=== PATIENT | female | born 1965 | race Caucasian/White ===

== ENCOUNTER 2024-02-20 19:52 | Emergency (ER) | payer OTHER ==
[~2024-02-20] VITALS: Ht 165.1 cm; Wt 83.9 kg
[~2024-02-20 19:52] MED LIST: ACET-2079 PO; AEC81 PO; CLOP-31 PO; EMPA25TA PO; EZET10TA48 PO; FENO145T26 PO; ISOS20TA85 PO; LOSA100T59 PO; MELA1TAB28 PO; METO-391 PO; MIRT-73 PO; RANO500T2 PO; ROSU40TA88 PO; SERT200C PO; SPIR25TA6 PO
[2024-02-20] MEDS: 0.9%NACL 1000ML 1,000 ML IV ONE (20:16)
[2024-02-20] MEDS: ondanSETRON 4MG INJ IVP ONE (20:19)
[2024-02-20 20:35] LABS: BASOPHILS # (AUTO) 0.04 K/uL (0.00-0.20); BASOPHILS % (AUTO) 0.4 % (0.0-5.0); EOSINOPHILS # (AUTO) 0.05 K/uL (0.00-0.70); EOSINOPHILS % (AUTO) 0.6 % (0.0-8.0); HEMATOCRIT 37.5 % (36-48); IMMATURE GRANULOCYTE ABSOLUTE 0.07 K/uL (0-1); LYMPHOCYTES # (AUTO) 1.5 K/uL (1.0-4.8); LYMPHOCYTES % (AUTO) 16.3 % (21.0-51.0); MEAN CORPUSCULAR HEMOGLOBIN 28.6 pg (27.0-33.0); MEAN CORPUSCULAR HGB CONC 33.1 g/dL (32.0-36.0); MEAN CORPUSCULAR VOLUME 86.4 fL (79-99); MONOCYTES # (AUTO) 0.8 K/uL (0.1-1.0); MONOCYTES % (AUTO) 9.3 % (3.0-13.0); NEUTROPHILS # (AUTO) 6.5 K/uL (1.8-7.7); NEUTROPHILS % (AUTO) 72.6 % (40.0-77.0); PLATELET COUNT (AUTO) 319 K/uL (130-400); RED BLOOD CELL COUNT(AUTO) 4.34 MIL/uL (4.00-5.50); WHITE BLOOD COUNT (AUTO) 8.9 K/uL (4.8-10.8)
[2024-02-20 20:44] LABS: COVID19 (SARS ANTIGEN RAPID) PRESUMPTIVE NEGATIVE (NEGATIVE)
[2024-02-20 20:45] LABS: INFLUENZA TYPE A Negative For Type A (NEGATIVE); INFLUENZA TYPE B Negative For Type B (NEGATIVE)
[2024-02-20 20:52] LABS: CARBON DIOXIDE 26 mmol/L (21-32); CHLORIDE 106 mmol/L (101-111); CREATININE 0.8 mg/dL (0.5-1.0); GLOMERULAR FILTR. RATE CALC 84 mL/min (>90); GLUCOSE,RANDOM 181 mg/dL (70-105); POTASSIUM 3.7 mmol/L (3.5-5.1); SODIUM SERUM 141 mmol/L (136-145); UREA NITROGEN, BLOOD 11 mg/dL (7-18)
[2024-02-20 21:02] LABS: ALANINE AMINOTRANSFERASE 24 U/L (12-78); ALBUMIN 3.5 g/dL (3.5-5.0); ASPARTATE AMINOTRANSFERASE 14 U/L (10-37); BILIRUBIN,DIRECT < 0.1 mg/dL (0.0-0.3); BILIRUBIN,TOTAL 0.3 mg/dL (0.2-1.0); CREATINE KINASE, TOTAL 122 U/L (21-232); TOTAL PROTEIN, SERUM 7.9 g/dL (6.0-8.3)
[2024-02-20] MEDS: hydrALAZine 20MG/ML VIAL IV ONE (21:09)
[2024-02-20] MEDS: morPHINE 4 MG SYG IVP ONE (22:05)
[2024-02-20 22:25] LABS: APPEARANCE,URINE CLEAR (CLEAR); BILIRUBIN,URINE NEGATIVE (NEGATIVE); COLOR,URINE YELLOW (YELLOW); GLUCOSE, URINE (UA) >=1000 mg/dL (NEGATIVE); KETONES,URINE NEGATIVE (NEGATIVE); LEUKOCYTE ESTERASE ,URINE NEGATIVE Leu/uL (NEGATIVE); NITRATE,URINE NEGATIVE (NEGATIVE); OCCULT BLOOD,URINE NEGATIVE (NEGATIVE); PROTEIN,URINE 20 mg/dL (NEGATIVE); UROBILINOGEN,URINE 0.2 mg/dL (0.2-1.0)
[2024-02-20 22:28] LABS: ADD UA MICROSCOPIC YES
[2024-02-20 22:29] LABS: BACTERIA,URINE FEW /HPF (None Seen); MUCUS,URINE FEW LPF (None Seen); SQUAMOUS EPITHELIAL CELL,UR FEW /HPF (0-2)
[2024-02-20] MEDS ORDERED: ONDA-243 PO (22:37)
[2024-02-20 22:45] VITALS: BP 164/80; PULSE 86; RESP 20; TEMP 97.4; O2SAT 99
== END 2024-02-20 22:55 | disposition home or self-care (01) ==
LOC: EDH 19:52
DX: K52.9 Noninfective gastroenteritis and colitis, unspecified (principal); E86.0 Dehydration; G89.18 Other acute postprocedural pain; I10 Essential (primary) hypertension; E11.9 Type 2 diabetes mellitus without complications; E78.00 Pure hypercholesterolemia, unspecified; I25.10 Atherosclerotic heart disease of native coronary artery without angina pectoris; Z20.822 Contact with and (suspected) exposure to COVID-19; Z79.02 Long term (current) use of antithrombotics/antiplatelets; Z79.82 Long term (current) use of aspirin; Z79.84 Long term (current) use of oral hypoglycemic drugs; Z79.899 Other long term (current) drug therapy; Z86.73 Personal history of transient ischemic attack (TIA), and cerebral infarction without residual deficits; Z88.0 Allergy status to penicillin; Z88.1 Allergy status to other antibiotic agents; Z88.6 Allergy status to analgesic agent; Z90.710 Acquired absence of both cervix and uterus; Z95.1 Presence of aortocoronary bypass graft; Z96.649 Presence of unspecified artificial hip joint
CPT/HCPCS: 99284; 96374; 96375; 71045; 96361; 87426; 82550; 80076; 84484; 80048; 85025; 87040; 87086; 87804 ×2; 83605; 81001; 36415; 73502; 84145; J7030; J0360; J2405; J2270

== ENCOUNTER 2024-03-29 10:50 | Emergency (ER) | payer OTHER ==
[~2024-03-29] VITALS: Ht 165.1 cm; Wt 78.9 kg
[~2024-03-29 10:50] MED LIST changes: +ONDA-243 PO
[2024-03-29] MEDS: PANTOPrazole 40 MG/VIAL IVP ONE (11:10)
--- NOTE | 2024-03-29 11:12 | ERN ---
ED Note History of Present Illness Stated Complaint: CP Chief Complaint: Chest Pain Time Seen by MD: 10:45 Dictation: Patient is a 59-year-old female with a past medical history of hypercholesterolemia, hypertension, DM II, and coronary artery disease who presents to the ED due to chest pain. Patient states the chest pain lasted about one minute and she describes it as substernal and squeezing in nature. Patient has a history of five-vessel bypass surgery and states her last catheterization was this summer demonstrating occlusion of greater than 75% in three vessels. On arrival patient states the chest pain has resolved and denies any shortness of breath, weakness, numbness or tingling. Allergies: Coded Allergies: Penicillins (Unverified Allergy, Intermediate, hives, 01/13/14) Tetracyclines (Unverified Allergy, Intermediate, hives, 01/13/14) cephalexin (Unverified Allergy, Intermediate, hives, 01/13/14) naproxen (Unverified Allergy, Intermediate, hives, 01/13/14) Uncoded Allergies: alleve (Allergy, Intermediate, hives, 01/13/14) loratab (Allergy, Intermediate, hives, 01/13/14) Home Meds Active Scripts Ondansetron (Ondansetron Odt) 4 Mg Tab.rapdis, 1 TAB PO Q6HPRN PRN for nausea/v omiting for 3 Days, #10 TAB 0 Refills Prov:ALEXANDER LIGHT DO 02/20/24 Acetaminophen with Codeine (Acetaminophen-Cod #3 Tablet) 300 Mg-30 Mg Tablet, 1 EACH PO Q6HPRN PRN for PAIN LEVEL 6 TO 10 for 7 Days, #20 TAB Prov:JENNIFER SHANNON 08/09/23 Reported Medications Sertraline HCl (Sertraline HCl) 200 Mg Capsule, 200 MG PO DAILY, CAP 08/07/23 Mirtazapine (Mirtazapine) 30 Mg Tab.rapdis, 45 MG PO HS, TAB 08/07/23 Melatonin/Pyridoxine HCl (B6) (Melatonin 3 mg Tablet) 3 Mg-10 Mg Tablet, 1 EACH PO HS, TAB 08/07/23 Isosorbide Mononitrate (Isosorbide Mononitrate) 20 Mg Tablet, 30 MG PO DAILY, TAB 08/07/23 Aspirin (ASPIRIN 81 MG ECTAB) 81 Mg Ectab, 81 MG PO DAILY, TAB.EC 08/07/23 Spironolactone (Spironolactone) 25 Mg Tablet, 25 MG PO DAILY, TAB 08/07/23 Metoprolol Succinate (Metoprolol Succinate) 50 Mg Tab.er.24h, 50 MG PO DAILY, TAB 08/07/23 Empagliflozin (Jardiance) 25 Mg Tablet, 12.5 MG PO DAILY, TAB 08/07/23 Rosuvastatin Calcium (Rosuvastatin Calcium) 40 Mg Tablet, 40 MG PO HS, TAB 08/07/23 Ezetimibe (Ezetimibe) 10 Mg Tablet, 10 MG PO DAILY, TAB 04/30/23 Fenofibrate Nanocrystallized (Fenofibrate) 145 Mg Tablet, 145 MG PO DAILY, TAB 04/29/23 Ranolazine (RANEXA) 500 Mg Tab.er.12h, 1000 MG PO BID, TAB 04/28/23 Losartan Potassium (Losartan Potassium) 100 Mg Tablet, 100 MG PO DAILY, TAB 04/28/23 Clopidogrel Bisulfate (Plavix) 75 Mg Tablet, 75 MG PO DAILY, TAB 04/28/23 Past Medical History Past Medical History: CAD, Diabetes-Type II, High Cholesterol, Heart Disease, Hypertension Surgical History: CABG, Other Surgical History Other: L HIP, L SHOULDER Family History: DM, HTN Social History: Negative, Lives with family Review of System Dictation Constitutional-no chills, weight loss/gain, fever Eyes-no injury, pain, redness and discharge ENT-no injury, pain, swelling Cardiovascular: palpitations, edema, Positive for chest pain, resolved. Respiratory no shortness of breath, cough, wheezing Abdomen/GI-no abdominal pain, diarrhea, constipation, vomiting, nausea Back no injury and pain Genitourinary no injury, bleeding and discharge Musculoskeletal/extremities no injury, deformity Skin no rash, discoloration Neuro-no headache, weakness, numbness, tingling, seizures, tremors Psych-no suicidal ideation, homicidal ideation, hallucinations, depression, anxiety, memory loss Initial Vital Sign VS Vital Signs Date Time Temp Pulse Resp B/P (MAP) Pulse Ox O2 Delivery O2 Flow Rate FiO2 03/29/24 10:52 98.1 72 18 157/72 97 Room Air 0 03/29/24 10:59 21 Physical Exam Dictation General-patient is awake alert and oriented Head/neck-normocephalic, atraumatic Eyes-PERRL, EOMI, vision at baseline Neck-trachea midline, supple, no nuchal rigidity Cardiovascular-RRR, normal S1/S2, no MRG is, no JVD Respiratory-no distress, wheezing, rales, rhonchi Abdomen-no tenderness, guarding, soft, nondistended Skin warm, dry, normal turgor, no rash Musculoskeletal/extremities pulses equal, no cyanosis Neuro-COA X 4, GCS 15, strength 5/5, CN 2-12 intact Psych-normal behavior, mood and affect normal Results (Laboratory/Radiology) Laboratory/Radiology Laboratory Tests Test 03/29/24 10:59 03/29/24 11:23 03/29/24 12:19 White Blood Count 6.7 K/uL (4.8-10.8) Red Blood Count 5.22 MIL/uL (4.00-5.50) Hemoglobin 14.3 g/dL (12.0-16.0) Hematocrit 44.4 % (36-48) Mean Corpuscular Volume 85.1 fL (79-99) Mean Corpuscular Hemoglobin 27.4 pg (27.0-33.0) Mean Corpuscular Hemoglobin Concent 32.2 g/dL (32.0-36.0) Red Cell Distribution Width 12.6 % (11.0-15.5) Platelet Count 214 K/uL (130-400) Mean Platelet Volume 9.2 fL (7.5-10.5) Immature Granulocyte % (Auto) 0.4 % (0-1) Neutrophils (%) (Auto) 71.6 % (40.0-77.0) Lymphocytes (%) (Auto) 18.3 % (21.0-51.0) L Monocytes (%) (Auto) 8.4 % (3.0-13.0) Eosinophils (%) (Auto) 1.0 % (0.0-8.0) Basophils (%) (Auto) 0.3 % (0.0-5.0) Neutrophils # (Auto) 4.8 K/uL (1.8-7.7) Lymphocytes # (Auto) 1.2 K/uL (1.0-4.8) Monocytes # (Auto) 0.6 K/uL (0.1-1.0) Eosinophils # (Auto) 0.07 K/uL (0.00-0.70) Basophils # (Auto) 0.02 K/uL (0.00-0.20) Absolute Immature Granulocyte (auto 0.03 K/uL (0-1) Nucleated Red Blood Cells 0.0 % (0.0-0.19) Prothrombin Time 10.7 SEC (9.6-11.6) Prothromb Time International Ratio 0.99 (0.85-1.15) Activated Partial Thromboplast Time 27.1 SEC (26.3-35.5) Sodium Level 142 mmol/L (136-145) Potassium Level 3.9 mmol/L (3.5-5.1) Chloride Level 107 mmol/L (101-111) Carbon Dioxide Level 28 mmol/L (21-32) Blood Urea Nitrogen 11 mg/dL (7-18) Creatinine 0.9 mg/dL (0.5-1.0) Glomerular Filtration Rate Calc 73 mL/min (>90) Random Glucose 113 mg/dL (70-105) H Total Calcium 8.8 mg/dL (8.5-10.1) Magnesium Level 1.70 mg/dL (1.80-2.40) L Total Creatine Kinase 69 U/L (21-232) # Troponin I High Sensitivity 11 ng/L (4-50) 10 ng/L (4-50) B-Type Natriuretic Peptide 37 pg/mL (0-100) Troponin I < 0.05 ng/mL (0.00-0.05) EKG Comment: Obtained 03/29/24 at 10:47:43 Sinus rhythm HR: 72 [place]: [address] elevations/depressions X-RAY Comment: CXR: FINDINGS: Lungs are clear. Heart size is normal. There is no vascular congestion. There is been previous median sternotomy. Mediastinum and bony thorax appear otherwise unremarkable. IMPRESSION: 1. No acute finding, no change. ED Course ED Course Orders Procedure Category Date Status Time Cbc With Differential LAB 03/29/24 Complete 10:53 Prothrombin Time With LAB 03/29/24 Complete INR 10:53 B-Type Natriuretic LAB 03/29/24 Complete Peptide 10:53 Chest 1vw RAD 03/29/24 Resulted 10:53 12 Lead Ekg Tracing- EKG 03/29/24 Complete Technical 10:53 Magnesium LAB 03/29/24 Complete 10:53 Creatine Kinase, Total LAB 03/29/24 Complete 10:53 Troponin I High LAB 03/29/24 Complete Sensitivity 10:53 Urinalysis Profile LAB 03/29/24 Logged 10:53 Partial LAB 03/29/24 Complete Thromboplastin Time 10:53 Troponin Poc Order LAB 03/29/24 Complete Only 10:53 Bedside Troponin-I LAB.ER 03/29/24 In Process (Poc) 10:53 Basic Metabolic Panel LAB 03/29/24 Complete 10:53 Pantoprazole 40mg Inj PHA 03/29/24 Complete (Protonix 40mg Inj 11:30 Troponin I High LAB 03/29/24 Complete Sensitivity 12:02 Current Medications Medications (Trade) Dose Ordered Sig/Surya Route PRN Reason Start Time Stop Time Status Last Admin Dose Admin Pantoprazole Sodium (PROTonix 40MG INJ) 40 mg ONCE ONCE IVP 03/29/24 11:30 03/29/24 11:31 DC 03/29/24 11:10 Vital Signs Date Time Temp Pulse Resp B/P (MAP) Pulse Ox O2 Delivery O2 Flow Rate FiO2 03/29/24 12:08 98.6 65 18 116/75 96 Room Air* 0 21 03/29/24 10:59 98.6 72 18 165/95 98 Room Air* 0 21 03/29/24 10:52 98.1 72 18 157/72 97 Room Air 0 Medical Decision Making [facility] MDM INITIAL IMPRESSION Initial history and physical concerning for chest pain, GERD Contributing medical problems: CAD, hypertension, hypercholesterolemia, DM II. I have reviewed the triage nursing notes and vital signs. Initial plan: Laboratory evaluation, EKG, x-ray, UA DATA REVIEW I have reviewed additional NN, repeat VS, and monitoring where indicated. Heart rate, blood pressure, and O2 saturation are acceptable. [facility] diagnostic results: Troponin 11, Repeat Troponin 10 ED COURSE Interventions: Protonix, Magnesium replacement Reassessment: Feeling better DISPOSITION Final diagnostic impression: GERD, chest pain I discussed my findings, clinical impression and treatment recommendations with the patient. My final plan for disposition was made based upon -mild risk of complications and potential morbidity of the patient's condition. -Discussion with the patient regarding management options. Patient will be discharged and advised to follow up with PCP. DX & DISP Disposition: Discharge Departure Impression: Primary Impression: GERD (gastroesophageal reflux disease) Additional Impression: History of CAD (coronary artery disease) Condition: Stable Scripts Omeprazole (Omeprazole) 40 Mg Capsule.dr 1 CAP PO DAILY for 30 Days, #30 CAP 0 Refills Prov: FILIBERTO LOBO MD 03/29/24 Additional Instructions: Eat smaller meals more frequently and avoid eating late at night. Avoid foods that trigger symptoms such as spicy, acidic, fatty, or fried foods. Take your GERD medication as directed. Raise the head of your bed by 4-6 inches when sleeping. Lose weight if needed, exercise and reduce stress. Follow a heart healthy diet low in saturated fats, cholesterol, and sodium. Include plenty of fruits, vegetables, whole grains, and lean protein. Limit alcohol intake. Implement stress reduction techniques like deep breathing, meditation, yoga. Seek medical tension if you have new or worsening chest pain, severe shortness of breath, dizziness nausea or vomiting accompanied by chest pain, pain radiating to her arm, jaw, or neck and/or sudden onset of severe chest discomfort. FOLLOW-UP WITH PRIMARY CARE PROVIDER IN 1 TO 2 DAYS. TAKE MEDICATIONS DIREC BRYON HERE IN THE EMERGENCY ROOM. OKAY TO CONTINUE HOME MEDICATIONS UNLESS OTHERWISE DISCUSSED DURING YOUR VISIT IN THE EMERGENCY ROOM TODAY. RETURN TO YOUR NEAREST EMERGENCY ROOM IF SYMPTOMS WORSEN OR IF THERE IS NO IMPROVEMENT. CALL 911 IF YOU NEED IMMEDIATE ASSISTANCE. TAKE TYLENOL [id number] NEEDED AND IF NO CONTRAINDICATIONS ARE PRESENT. INCREASE ORAL HYDRATION. A WOUND CULTURE OR URINE CULTURE WAS ORDERED HERE IN THE EMERGENCY ROOM DEPARTMENT PLEASE FOLLOW-UP WITH PRIMARY CARE PROVIDER AND ADVISE THEM TO GET REPEAT PORTS FROM OUR FACILITY. IF YOU HAD ANY GISELLA WRAP/SPLINTS THAT WERE APPLIED HERE, PLEASE DO NOT REMOVE THEM UNTIL YOU SEE YOUR PRIMARY CARE OR SPECIALTY. Referrals: PHOENIX GARCIA MD (PCP) Time of Disposition: 13:22 I have reviewed I have reviewed the case I have examined patient FILIBERTO LOBO MD Mar 29, 2024 11:12
[2024-03-29 11:17] LABS: BASOPHILS # (AUTO) 0.02 K/uL (0.00-0.20); BASOPHILS % (AUTO) 0.3 % (0.0-5.0); CREATININE 0.9 mg/dL (0.5-1.0); EOSINOPHILS # (AUTO) 0.07 K/uL (0.00-0.70); HEMATOCRIT 44.4 % (36-48); IMMATURE GRANULOCYTE ABSOLUTE 0.03 K/uL (0-1); LYMPHOCYTES # (AUTO) 1.2 K/uL (1.0-4.8); LYMPHOCYTES % (AUTO) 18.3 % (21.0-51.0); MEAN CORPUSCULAR HEMOGLOBIN 27.4 pg (27.0-33.0); MEAN CORPUSCULAR HGB CONC 32.2 g/dL (32.0-36.0); MEAN CORPUSCULAR VOLUME 85.1 fL (79-99); MONOCYTES # (AUTO) 0.6 K/uL (0.1-1.0); MONOCYTES % (AUTO) 8.4 % (3.0-13.0); NEUTROPHILS # (AUTO) 4.8 K/uL (1.8-7.7); NEUTROPHILS % (AUTO) 71.6 % (40.0-77.0); PLATELET COUNT (AUTO) 214 K/uL (130-400); POTASSIUM 3.9 mmol/L (3.5-5.1); RED BLOOD CELL COUNT(AUTO) 5.22 MIL/uL (4.00-5.50); RED CELL DISTRIBUTION WIDTH 12.6 % (11.0-15.5); WHITE BLOOD COUNT (AUTO) 6.7 K/uL (4.8-10.8)
[2024-03-29 11:22] LABS: MAGNESIUM 1.7 mg/dL (1.80-2.40)
[2024-03-29 11:44] LABS: B-TYPE NATRIURETIC PEPTIDE 37 pg/mL (0-100)
[2024-03-29 11:47] LABS: INR 0.99 (0.85-1.15); PROTHROMBIN TIME 10.7 SEC (9.6-11.6)
[2024-03-29 11:49] LABS: PARTIAL THROMBOPLASTIN TIME 27.1 SEC (26.3-35.5)
--- NOTE | 2024-03-29 12:08 | EKG ---
[facility] Test Date: 2024-03-29 Test Time: 10:47:43 Pat Name: MONICA VERNON Department: ED Room: Gender: F Litigation Docket Manager: [id number] : [id number] Requested By: HATTIE SY Order Number: [id number] Reading MD: Skuhwinder Zee Measurements Intervals [place] Rate: 72 P: 72 [place]: 155 QRS: 54 QRSD: 135 T: 24 QT: 436 QTc: 477 Interpretive Statements Sinus rhythm Probable left atrial enlargement Right bundle branch block Compared to ECG 08/06/2023 22:00:54 Left posterior fascicular block no longer present Electronically Signed On 03-29-2024 18:11:27 BISQUE KILN DRAWER by Sukhwinder Zee Please click the below link to view image of tracing.
[2024-03-29] MEDS ORDERED: OMEP40CA21 PO (13:21)
[2024-03-29] MEDS: MAGNESIUM OXIDE 400 MG TABLET PO ONE (13:28)
[2024-03-29 13:32] VITALS: BP 121/74; PULSE 71; RESP 18; TEMP 98.6; O2SAT 98
== END 2024-03-29 13:50 | disposition home or self-care (01) ==
LOC: EDH 10:50
DX: K21.9 Gastro-esophageal reflux disease without esophagitis (principal); E11.9 Type 2 diabetes mellitus without complications; E78.00 Pure hypercholesterolemia, unspecified; I10 Essential (primary) hypertension; I25.10 Atherosclerotic heart disease of native coronary artery without angina pectoris; Z79.02 Long term (current) use of antithrombotics/antiplatelets; Z79.82 Long term (current) use of aspirin; Z79.84 Long term (current) use of oral hypoglycemic drugs; Z79.899 Other long term (current) drug therapy; Z88.0 Allergy status to penicillin; Z88.1 Allergy status to other antibiotic agents; Z88.6 Allergy status to analgesic agent; Z95.1 Presence of aortocoronary bypass graft
CPT/HCPCS: 99285; 96374; 71045; 82550; 83735; 84484 ×3; 80048; 83880; 85025; 85610; 85730; 36415; 93005; J2470

== ENCOUNTER 2024-09-29 08:00 | Day surgery (SDC) | payer OTHER ==
[2024-09-29] VITALS (10 sets, daily range): BP systolic 101–162; BP diastolic 60–97; PULSE 65–76; RESP 14–17; TEMP 97.3–97.9
[~2024-09-29] VITALS: Ht 165.1 cm; Wt 79.4 kg
[~2024-09-29 08:00] MED LIST changes: -ACET-2079 PO; -EZET10TA48 PO; -FENO145T26 PO; +HYDR8TAB2 PO; -ISOS20TA85 PO; +LABE100T7 PO; -LOSA100T59 PO; -MELA1TAB28 PO; -METO-391 PO; -MIRT-73 PO; -ONDA-243 PO; +PANT40TA55 PO; -ROSU40TA88 PO; -SERT200C PO
[2024-09-29] MEDS ORDERED: BACL10TA PO (09:46)
[2024-09-29] MEDS ORDERED: HYDR-3421 PO (09:46)
[2024-09-29] MEDS ORDERED: ATOR40TA69 PO (09:46)
[2024-09-29] MEDS: 0.9%NACL 1000ML 1,000 ML IV ONE (10:12)
[2024-09-29] MEDS ORDERED: proPOFol 10 MG/ML 20ML VIAL IV ONE (10:58)
--- NOTE | 2024-09-29 12:25 | NUR ---
PATIENT DISCHARGED FROM FACILITY VIA WHEELCHAIR BY DAJA FRANCO RN AND ASSISTED INTO PRIVATE VEHICLE DRIVEN BY FRIEND.
== END 2024-09-29 12:25 | disposition home or self-care (01) ==
LOC: DAH 08:00 → ENDO 08:00
PROVIDERS: ATTEND Internal Medicine Gastroenterology
DX: R13.10 Dysphagia, unspecified (principal); K21.00 Gastro-esophageal reflux disease with esophagitis, without bleeding; K29.70 Gastritis, unspecified, without bleeding; R10.13 Epigastric pain; K31.9 Disease of stomach and duodenum, unspecified; K85.00 Idiopathic acute pancreatitis without necrosis or infection; K44.9 Diaphragmatic hernia without obstruction or gangrene; R10.10 Upper abdominal pain, unspecified; E13.9 Other specified diabetes mellitus without complications; I10 Essential (primary) hypertension; I25.10 Atherosclerotic heart disease of native coronary artery without angina pectoris; E66.9 Obesity, unspecified; E78.5 Hyperlipidemia, unspecified; Z87.898 Personal history of other specified conditions; Z68.29 Body mass index [BMI] 29.0-29.9, adult; Z79.899 Other long term (current) drug therapy; Z79.82 Long term (current) use of aspirin; Z79.84 Long term (current) use of oral hypoglycemic drugs; Z90.49 Acquired absence of other specified parts of digestive tract; Z90.89 Acquired absence of other organs; Z95.1 Presence of aortocoronary bypass graft; Z96.659 Presence of unspecified artificial knee joint; Z88.8 Allergy status to other drugs, medicaments and biological substances; Z88.0 Allergy status to penicillin
CPT/HCPCS: 82948; 43239; 43248; J7030; J2704; A4620; A4215 ×2; A4223; A4222; A4221; A4663; A4606; J3490